=== PATIENT | male | born 1945 | race Caucasian/White ===

== ENCOUNTER 2018-08-15 10:24 | Inpatient (IN) ==
[2018-08-02 11:54] LABS: Basophils # (Auto) 0 K/mcL (0.0-0.3); Basophils % (Auto) 0.4 % (0.0-2.0); Eosinophils # (Auto) 0.1 K/mcL (0.0-0.7); Eosinophils % (Auto) 2.2 % (0.0-7.0); Granulocytes % (Auto) 64.6 % (38.0-78.0); Lymphocytes # (Auto) 1.2 K/mcL (1.5-4.8); Lymphocytes % (Auto) 24.8 % (15.5-49.0); Mean Cell Volume 89.9 fL (80.0-100.0); Monocytes # (Auto) 0.4 K/mcL (0.1-0.9); Platelet Count 232 K/mcL (140-440); RBC 5.21 M/mcL (4.50-5.90); Red Cell Distribution Width 13.2 % (11.5-14.5)
[2018-08-02 12:11] LABS: Blood Urea Nitrogen 26 mg/dl (8-23)
[2018-08-02 12:46] LABS: Appearance,Urine CLEAR; Bilirubin,Urine NEG (NEG); Color,Urine STRAW; Glucose,Urine (UA) NEGATIVE (NEG); Leukocyte Esterase,Urine NEG /uL (NEG); Protein,Urine NEG (NEG); Urine Blood NEG mg/dL (<0.03); Urobilinogen,Urine NEG (NEG)
[~2018-08-15 10:24] MED LIST: CELECOXIB 200 MG CAPSULE PO SCH; PREGABALIN 75 MG CAPSULE PO SCH; ceFAZolin 1 GM VIAL IV SCH; oxyCODONE 10 MG TAB.ER.12H PO SCH
[2018-08-15] MEDS ORDERED: GENTAMICIN SULFATE 800 MG/20 ML VIAL IR ONE (12:24)
[2018-08-15] MEDS ORDERED: GLYCOPYRROLATE 0.2 MG/ML VIAL IV ONE (12:40)
[2018-08-15] MEDS ORDERED: PHENYLEPHRINE 10 MG/ML VIAL IV ONE (12:40)
[2018-08-15] MEDS ORDERED: PROPOFOL 200 MG/20 ML VIAL IV ONE (12:40)
[2018-08-15] MEDS ORDERED: TRANEXAMIC ACID 1,000 MG/10 ML VIAL IV ONE ×2 (12:40→14:09)
[2018-08-15] MEDS ORDERED: MIDAZOLAM 2 MG/2 ML VIAL IV ONE (12:40)
[2018-08-15] MEDS ORDERED: KETAMINE 100 MG/ML ML IV ONE (12:40)
[2018-08-15] MEDS ORDERED: ONDANSETRON 4 MG/2 ML VIAL IV ONE (12:40)
[2018-08-15] MEDS ORDERED: SUCCINYLCHOLINE 20 MG/ML ML IV ONE (12:40)
[2018-08-15] MEDS ORDERED: LIDOCAINE HCL/PF 100 MG/5 ML SYRINGE IV ONE (12:40)
[2018-08-15] MEDS ORDERED: ROPIVACAINE HCL/PF 30 ML VIAL IJ ONE (12:40)
--- NOTE | 2018-08-15 14:07 | Brief Operative Note ---
Pre-op diagnosis: right shoulder rtc tear arthropathy, biceps tendonitis Post-op diagnosis: same Procedure: right reverse total shoulder arthroplasty, biceps tenodesis Grafts/Implants: Yes Anesthesia: GETA Findings: non repairable tear of rotator cuff Complications: none Surgeon: Balbir Magaña Promotions Assistant Sales Marketing: Mariela Mueller Estimated blood loss (cc): 100 Specimens Removed/Pathology: none sent Condition: stable Disposition: PACU
[2018-08-15] MEDS ORDERED: BISACODYL 10 MG SUPP.RECT PR PRN (14:09)
[2018-08-15] MEDS ORDERED: FLEETS ADULT ENEMA PR PRN (14:09)
[2018-08-15] MEDS ORDERED: MAGNESIUM HYDROXIDE 30 ML ORAL.SUSP PO PRN (14:09)
[2018-08-15] MEDS ORDERED: ONDANSETRON 4 MG ODT TABLET SL PRN (14:09)
[2018-08-15] MEDS ORDERED: ONDANSETRON 4 MG/2 ML VIAL IV PRN ×2 (14:09→14:51)
[2018-08-15] MEDS ORDERED: POLYETHYLENE GLYCOL 3350 17 GM PACKET PO PRN (14:09)
--- NOTE | 2018-08-15 14:09 | Discharge Summary ---
Ortho Discharge - TSA - Patient Instructions Diet: Regular Diet Activity: non weight bearing Total Shoulder Protocol: Leave immobilizer in place except for bathing and ROM. Abduction pillow. Continue to wear sling until seen by physician. Codman Pendulum : These exercises use momentum produced by your body to move your shoulder joint. Bend your knees and shift your weight to your front leg, then back, allowing your arm to swing in the same directions. Using the same technique, alternately shift your weight between your right and left legs, allowing your arm to swing from side to side. These exercises are also performed in counterclockwise and clockwise circular motions. Typically these exercises are performed several times per day, for a set number repetitions or minutes, such as 20 times in a row or 5 minutes at a time. Dressing Care: May shower in 2 days - Follow Up Plan Follow Up Appointments: Mariela Mueller PA-C [Physician Healthcare Administrator] - 08/30/18 11:00 am Disposition: Home, Self-Care Prognosis: Good Rehab Potential: Good I certify that the patient requires SNF services: No Overall status at discharge: patient is progressing back to baseline
[2018-08-15] MEDS ORDERED: ACETAMINOPHEN 1,000 MG/100 ML BOTTLE IV ONE (14:51)
[2018-08-15] MEDS ORDERED: MEPERIDINE 25 MG/ML SYRINGE IV PRN (14:51)
[2018-08-15] MEDS ORDERED: BENZOCAINE/MENTHOL 1 LOZENGE PO PRN (14:51)
[2018-08-15] MEDS ORDERED: METHOCARBAMOL 1,000 MG/10 ML VIAL IV PRN (14:51)
[2018-08-15] MEDS ORDERED: IPRATROPIUM/ALBUTEROL 3 ML AMPUL.NEB NEB PRN (14:51)
[2018-08-15] MEDS: fentaNYL 100 MCG/2 ML VIAL IV PRN ×2 (14:55→14:57)
[2018-08-15] MEDS ORDERED: fentaNYL 100 MCG/2 ML VIAL IV ONE (14:56)
[2018-08-15] MEDS ORDERED: METHOCARBAMOL 1,000 MG/10 ML VIAL ONE (14:56)
[2018-08-15] MEDS ORDERED: LACTATED RINGERS 1,000 ML IV SCH (15:00)
--- NOTE | 2018-08-15 15:05 | Operative Note ---
DATE OF OPERATION: 08/15/2018 PREOPERATIVE DIAGNOSES: 1. Right shoulder rotator cuff tear arthropathy. 2. Right shoulder proximal biceps tendinitis. POSTOPERATIVE DIAGNOSES: 1. Right shoulder rotator cuff tear arthropathy. 2. Right shoulder proximal biceps tendinitis. PROCEDURE: 1. Right reverse total shoulder arthroplasty. 2. Right shoulder soft tissue proximal biceps tenodesis. SURGEON: Cheyanne Magaña M.D. SASH REPAIRER SURGEON: Mariela Mueller PA-C. ANESTHESIA: General. ESTIMATED BLOOD LOSS: 100 mL. COMPLICATIONS: None noted. SPECIMENS REMOVED: None. DRAINS: None. IMPLANTS: DePuy TOWNSEND-coated cementless Metaglene; DePuy Delta XTEND locking Metaglene screw 4.5 x 30 x1, 4.5 x 24 x2, 4.5 x 18 x1; DePuy Delta XTEND glenosphere standard 38 mm; DePuy Delta XTEND modular eccentric epiphysis size 1, right; DePuy Delta XTEND modular humeral stem size 12, TOWNSEND-coated cementless; DePuy Delta XTEND humeral polyethylene cup 38, +6 standard. INDICATIONS: The patient has had a longstanding history of worsening pain in the shoulder that has failed conservative treatment. Radiographs have confirmed advanced degenerative joint disease and a failed rotator cuff. After a long discussion about treatment options, the patient elected to proceed with a reverse total shoulder arthroplasty. The risks and benefits were discussed with the patient in detail including, but not limited to, the risks of anesthesia, problems with the heart or lungs related to anesthesia, infection, compromise or injury to the nerves and blood vessels, deep venous thrombosis, pulmonary embolism, pneumonia, continued pain after surgery, worsening pain or symptoms after surgery, swelling, loss of motion, instability, fracture, arm length discrepancy, and need for repeat surgery. DESCRIPTION OF PROCEDURE: The patient was seen in the preanesthesia waiting room where all questions were answered and the correct side and site were identified and marked. The patient was transferred to the operating room and administered the anesthetic and given preoperative antibiotics. A time-out was then called. The patient was placed in the modified beach chair position with all prominences well padded. The extremity was prepped and draped from the fingers up to the neck. A standard deltopectoral skin incision was created. Dissection was carried down to the deltopectoral groove and the cephalic vein was isolated medially and retracted laterally with the deltoid. Retractors were placed and the coracobrachialis was split up to the coracoacromial ligament allowing retraction of the conjoined tendon. We split the subscapularis 1 cm medial to the bicipital groove and extended the split into the rotator interval. This was tagged for later repair. The supraspinatus was torn off of its origin, but a small tag was left. It was comminuted and all the way back into the infraspinatus in an inverted L-shaped fashion. It was very fibrillated and retracted about 2 cm. I tried to mobilize it, and I could not mobilize it. I felt that it was not amenable to repair so we debrided the rest of the tendon. The biceps was cut and a soft tissue tenodesis was performed into the anterior shoulder with #2 FiberWire. A capsular release was performed in a posterior subperiosteal direction along the humerus. The humeral head was then dislocated. We established intramedullary access and hand reamed up to get good cortical chatter with the DePuy Delta XTEND reverse total shoulder instrumentation. We then used the intramedullary guide and set to about 5 degrees of retroversion. The proximal humerus cut was performed and osteophytes were removed. A metal protector plate was then placed. Attention was then turned to the glenoid. Retractors were placed for optimal visualization and the labrum was excised in its entirety. A centralizing Steinmann pin was placed just into the posterior inferior quadrant in a standard fashion. We reamed over the pin to remove all the cartilage and get to a good base for the prosthesis. The drill was then placed over for the central peg. A cementless Metaglene was then impacted into place. We then drilled, measured, and placed the four screws starting inferior, then superior, then anterior, and finally posterior. The superior locking screw was lined up at the base of the coracoid process. We then impacted the head onto the Metaglene and tightened down in a standard fashion. Attention was then turned back to the humerus. Proximal reaming was performed off the intramedullary guide into the humeral head, using the eccentric guide to allow best coverage. We again set version and broached up to a stable implant. Trials were placed and good tension, motion, and stability were obtained at this point. Trials were removed and the final press fit femoral prosthesis was impacted into place with measured version. The final polyethylene was placed and the shoulder was reduced and again checked for motion, tension, and stability. We irrigated with 3 liters of antibiotic saline and closed the subscapularis with # 2 FiberWire. We irrigated again and closed the deltopectoral interval with several # 0 Vicryl figure of eight sutures. The subcutaneous layer was closed with 2-0 Vicryl and the skin was closed with 3-0 Monocryl and Dermabond. A sterile pressure dressing was applied and the patient was placed into an abduction sling. All needle and sponge counts were correct. The patient was transferred to the recovery room in stable condition. [email or web address]:gael Job ID: [id number] Doc ID: [id number] Cheyanne Magaña MD
--- NOTE | 2018-08-15 15:13 | XRay Report ---
CLINICAL INFORMATION: Post-OP Total Shoulder COMPARISON: None. FINDINGS: Total shoulder prosthesis is anatomically aligned. No osseous abnormality. Soft tissue swelling as expected. IMPRESSION: Negative Interpreted and Authenticated by: Balbir Jarvis 08/15/18
[2018-08-15] MEDS: 0.9 % SODIUM CHLORIDE 1,000 ML IV SCH ×2 (19:00→22:24)
[2018-08-15] MEDS ORDERED: SENNOSIDES 1 TABLET PO SCH (21:00)
[2018-08-15] MEDS: ceFAZolin 1 GM VIAL IV SCH (21:02)
[2018-08-15] MEDS: KETOROLAC 30 MG/ML VIAL IV PRN (21:03)
[2018-08-15] MEDS: DOCUSATE SODIUM 100 MG CAPSULE PO SCH (21:04)
[2018-08-15] MEDS: 0.9 % SODIUM CHLORIDE 10 ML SYRINGE IV SCH (22:24)
[2018-08-15] MEDS: METHOCARBAMOL 750 MG TABLET PO PRN (23:19)
[2018-08-15] MEDS: HYDROcodone/APAP 10/325MG TABLET PO PRN (23:19)
[2018-08-16] MEDS: BENZOCAINE/MENTHOL 1 LOZENGE PO PRN ×2 (02:04→05:02)
[2018-08-16] MEDS: ceFAZolin 1 GM VIAL IV SCH (04:25)
[2018-08-16] MEDS: 0.9 % SODIUM CHLORIDE 10 ML SYRINGE IV SCH (05:41)
[2018-08-16] MEDS: KETOROLAC 30 MG/ML VIAL IV PRN (05:49)
[2018-08-16] MEDS: METHOCARBAMOL 750 MG TABLET PO PRN (05:49)
--- NOTE | 2018-08-16 07:52 | Orthopedic Progress Note ---
Subjective Patient information: Note initiated : 08/16/18 at 7:51 am Service Date, if different from initiated Date: [] Patient: Balbir Moser 73 y/o M admitted on 08/15/18 for Right Total Shoulder Arthroplasty with Open. Chief Complaint: [] Interval history: doing well. painful but improving Objective Vital signs: Vital Signs Temp Pulse Pulse Resp BP Pulse Ox 08/16/18 07:20 98.3 F 83 14 94/54 96 08/16/18 04:07 98.3 F 70 12 102/51 96 08/15/18 22:50 97.8 F 74 12 101/58 96 08/15/18 20:00 98.0 F 84 12 118/62 96 08/15/18 17:30 62 118/67 99 08/15/18 16:57 56 L 114/64 100 08/15/18 16:11 59 L 119/72 100 08/15/18 15:42 74 135/68 100 08/15/18 15:39 79 08/15/18 15:30 79 14 100 08/15/18 15:26 86 125/72 99 08/15/18 15:14 97.7 F 86 12 121/58 95 08/15/18 14:55 97.8 F 80 12 113/65 98 08/15/18 14:39 97.1 F 85 8 L 131/74 100 08/15/18 14:34 80 8 L 121/66 99 08/15/18 14:29 78 8 L 113/64 98 08/15/18 14:24 97.3 F 77 11 L 101/56 98 08/15/18 10:45 97.9 F 64 16 113/67 98 Intake and Output 08/15/18 08/16/18 08/16/18 21:59 05:59 13:59 Intake Total 100 900 Output Total 0 500 Balance 100 400 Intake: IV 100 Oral 0 900 Output: Void Amount 0 500 Other: Meal [place], soup Percent of Meal Consumed 50% Feeding Ability Independent Urine Color Dark Yellow Urine Odor Normal Weight 149 lb 149 lb Intake & Output: Intake & Output 08/15/18 08/16/18 08/16/18 21:59 05:59 13:59 Intake Total 100 900 Output Total 0 500 Balance 100 400 Weight 149 lb 149 lb Intake: IV 100 Oral 0 900 Output: Void Amount 0 500 Other: Meal [place], soup Percent of Meal Consumed 50% Feeding Ability Independent Urine Color Dark Yellow Urine Odor Normal Incision: Yes healing Incision clean and dry: Yes Dressing: Yes clean, Yes dry, Yes intact Weight bearing status: non Neurological exam IM: Yes alert, Yes normal gait, Yes oriented X3, Yes motor sensory intact, Yes neurovascular intact Extremities exam IM: No calf tenderness, Yes Foot pink and warm, Yes neurovascular intact - Labs CBC & BMP: 08/16/18 04:00 08/02/18 08:48 Labs: 08/16/18 08/02/18 04:00 08:49 Hgb 13.4 L 15.5 Hct 40.0 L 46.9 Assessment and Plan (1) Osteoarthritis, shoulder pod 1 s/p reverse tsa nwb pain control sling pt home today Status: Acute
[2018-08-16] MEDS: HYDROcodone/APAP 10/325MG TABLET PO PRN ×2 (08:01→10:59)
[2018-08-16] MEDS: DOCUSATE SODIUM 100 MG CAPSULE PO SCH (08:01)
[2018-08-16] MEDS: 0.9 % SODIUM CHLORIDE 1,000 ML IV SCH (10:07)
[2018-08-29] MEDS ORDERED: EVOLOCUMAB 140 MG SUB-Q SCH (09:00)
== END 2018-08-16 12:36 | disposition home or self-care (01) | DRG 483 ==
LOC: ICU 10:24
PROVIDERS: ADMIT Orthopaedic Surgery Sports Medicine; ATTEND Orthopaedic Surgery Sports Medicine